=== PATIENT | female | born 1960 | race Native Hawaiian/Other Pacific Islander ===

== ENCOUNTER 2016-08-31 10:06 | Emergency (ER) | payer OTHER ==
[~2016-08-31] VITALS: Ht 157.5 cm; Wt 71.2 kg
[2016-08-31 10:27] VITALS: BP 120/77; TEMP 98.5
[2016-08-31] MEDS ORDERED: TRAM50TA PO (11:02)
[2016-08-31] MEDS ORDERED: PERIDEX0.12 % MT (11:02)
== END 2016-08-31 11:05 | disposition home or self-care (01) ==
LOC: ED 10:06
DX: K02.9 Dental caries, unspecified (principal); K04.7 Periapical abscess without sinus; K08.89 Other specified disorders of teeth and supporting structures
CPT/HCPCS: 99282

== ENCOUNTER 2017-01-15 11:32 | Outpatient (CLI) | payer OTHER ==
[~2017-01-15 11:32] MED LIST: PERIDEX0.12 % MT; TRAM50TA PO
[2017-01-15 12:57] LABS: PLATELET COUNT 489 K/uL (152-353)
== END 2017-01-15 19:05 | disposition home or self-care (01) ==
LOC: LABW 11:32
PROVIDERS: Nurse Practitioner Family
DX: R05 Cough (principal); R06.89 Other abnormalities of breathing
CPT/HCPCS: 36415; 80053; 84439; 84443; 84481; 85027; 86615